=== PATIENT | female | born 1975 | race Caucasian/White ===

== ENCOUNTER 2018-10-03 20:40 | Emergency (ER) | payer SELFPAY ==
[~2018-10-03] VITALS: Ht 162.6 cm; Wt 72.7 kg
[2018-10-03 20:53] VITALS: Ht 162.6 cm; Wt 72.7 kg
[2018-10-03] MEDS ORDERED: TORADOL10 MG PO (22:21)
[2018-10-03 23:03] VITALS: BP 123/71
== END 2018-10-03 23:03 | disposition home or self-care (01) ==
LOC: D.ER 20:40
DX: S66.911A Strain of unspecified muscle, fascia and tendon at wrist and hand level, right hand, initial encounter (principal); X58.XXXA Exposure to other specified factors, initial encounter; Y93.89 Activity, other specified; Y92.019 Unspecified place in single-family (private) house as the place of occurrence of the external cause

== ENCOUNTER 2019-02-17 08:00 | Outpatient (CLI) | payer MEDICAID ==
[2018-10-03 20:53] VITALS: BMI 27.5
[~2019-02-17 08:00] MED LIST: TORADOL10 MG PO
== END 2019-02-17 23:59 | disposition home or self-care (01) ==
LOC: D.MAMMO 08:00
PROVIDERS: ATTEND Family Medicine
DX: Z12.31 Encounter for screening mammogram for malignant neoplasm of breast (principal)

== ENCOUNTER 2019-02-19 19:43 | Emergency (ER) | payer MEDICAID ==
[~2019-02-19] VITALS: Ht 162.6 cm; Wt 68.0 kg
[2019-02-19 19:51] VITALS: Ht 162.6 cm; Wt 68.0 kg
[2019-02-19] MEDS ORDERED: TOPAMAX50 MG PO (21:04)
[2019-02-19] MEDS ORDERED: VISTARIL50 MG PO (21:05)
[2019-02-19] MEDS ORDERED: MEDROL DOSE PACK4 MG PO (21:05)
[2019-02-19 21:46] VITALS: BP 116/79
== END 2019-02-19 21:46 | disposition home or self-care (01) ==
LOC: D.ER 19:43
DX: G43.909 Migraine, unspecified, not intractable, without status migrainosus (principal); T78.40XA Allergy, unspecified, initial encounter; X58.XXXA Exposure to other specified factors, initial encounter

== ENCOUNTER 2019-04-18 10:30 | Outpatient (CLI) | payer MEDICAID ==
[2019-02-19 19:51] VITALS: BMI 27.5
[~2019-04-18 10:30] MED LIST changes: +MEDROL DOSE PACK4 MG PO; +TOPAMAX50 MG PO; +VISTARIL50 MG PO
== END 2019-04-18 11:00 | disposition home or self-care (01) ==
LOC: D.MAMMO 10:30
PROVIDERS: ATTEND Family Medicine
DX: R92.8 Other abnormal and inconclusive findings on diagnostic imaging of breast (principal)

== ENCOUNTER 2019-05-07 15:02 | Emergency (ER) | payer MEDICAID ==
[~2019-05-07] VITALS: Ht 162.6 cm; Wt 77.3 kg
[2019-05-07 15:07] VITALS: Ht 162.6 cm; Wt 77.3 kg
[2019-05-07] MEDS ORDERED: TYLENOL W/CODEI1 TAB PO (16:02)
[2019-05-07] MEDS ORDERED: ALBUTEROL SULF8.5 GM INH (16:02)
[2019-05-07] MEDS ORDERED: ZPAK PO (16:02)
[2019-05-07 16:19] VITALS: BP 125/77
== END 2019-05-07 16:19 | disposition home or self-care (01) ==
LOC: D.ER 15:02
DX: J40 Bronchitis, not specified as acute or chronic (principal); F17.210 Nicotine dependence, cigarettes, uncomplicated

== ENCOUNTER 2019-07-20 12:46 | Emergency (ER) | payer MEDICAID ==
[~2019-07-20] VITALS: Ht 162.6 cm; Wt 73.6 kg
[~2019-07-20 12:46] MED LIST changes: +ALBUTEROL SULF8.5 GM INH; +TYLENOL W/CODEI1 TAB PO; +ZPAK PO
[2019-07-20 12:51] VITALS: BP 127/77; Ht 162.6 cm; Wt 73.6 kg
[2019-07-20] MEDS ORDERED: PROPRANOLOL HCL20 MG PO (12:53)
[2019-07-20] MEDS ORDERED: VALIUM 2 MG TAB2 MG PO (12:54)
[2019-07-20] MEDS ORDERED: ULTRAM50 MG PO (15:12)
== END 2019-07-20 15:46 | disposition home or self-care (01) ==
LOC: D.ER 12:46
DX: S66.211A Strain of extensor muscle, fascia and tendon of right thumb at wrist and hand level, initial encounter (principal); W19.XXXA Unspecified fall, initial encounter; Y93.9 Activity, unspecified; Y92.9 Unspecified place or not applicable; S63.511A Sprain of carpal joint of right wrist, initial encounter

== ENCOUNTER 2019-09-25 05:00 | Inpatient (IN) | payer MEDICAID ==
[2019-09-22 11:05] LABS: BASOPHILS 0.2 % (0-2); EOSINOPHILS 1.5 % (0-7); HEMATOCRIT 39.3 % (36.0-48.0); HEMOGLOBIN 13.2 g/dL (12-16); IMMATURE GRANULOCYTES 0.4 % (0-5); LYMPHOCYTES 37.6 % (15-50); MCH 27.7 pg (26.0-34.0); MCHC 33.6 g/dL (31.0-37.0); MCV 82.4 fL (80.0-100.0); MEAN PLATELET VOLUME 9.9 fL (7.4-10.4); MONOCYTES 6.7 % (2-11); NEUTROPHILS 53.6 % (40-80); PLATELET COUNT 387 10x3/uL (130-400); RBC 4.77 10x6/uL (4.00-5.40); WBC 10.1 10x3/uL (4.8-10.8)
[2019-09-22 11:29] LABS: CALC OSMOLALITY 277 mosm/kg (275-300); CALCIUM 9.5 mg/dL (8.5-10.1); CARBON DIOXIDE 21.6 mmol/L (21.0-32.0); CHLORIDE - SERUM 105 mmol/L (98-107); CREATININE - SERUM 0.8 mg/dL (0.6-1.3); GLUCOSE 92 mg/dL (74-106); POTASSIUM - SERUM 3.6 mmol/L (3.5-5.1); SODIUM 139 mmol/L (136-145); UREA NITROGEN 12 mg/dL (7-18); eGFR NON AFRICAN AMERICAN 84 mL/min (90-120)
[2019-09-22 11:32] LABS: UDS - AMPHET NEGATIVE QUAL (NEGATIVE); UDS - BARB NEGATIVE QUAL (NEGATIVE); UDS - BENZO POSITIVE QUAL (NEGATIVE); UDS - COCAINE NEGATIVE QUAL (NEGATIVE); UDS - OPIATE NEGATIVE QUAL (NEGATIVE); UDS - PCP NEGATIVE QUAL (NEGATIVE); UDS - THC NEGATIVE QUAL (NEGATIVE)
[2019-09-22 12:00] LABS: HCG URINE NEGATIVE (NEGATIVE)
[~2019-09-25] VITALS: Ht 162.6 cm; Wt 88.6 kg
[2019-09-25] VITALS (8 sets, daily range): BP systolic 101–147; BP diastolic 56–77; Ht 162.6 cm; Wt 88.6 kg
[~2019-09-25 05:00] MED LIST changes: +PROPRANOLOL HCL20 MG PO; +ULTRAM50 MG PO; +VALIUM 2 MG TAB2 MG PO
[2019-09-25 06:09] LABS: HCG URINE NEGATIVE (NEGATIVE)
[2019-09-26 04:56] VITALS: BP 101/52
[2019-09-26 06:39] LABS: BASOPHILS 0.1 % (0-2); EOSINOPHILS 0.1 % (0-7); HEMATOCRIT 33.5 % (36.0-48.0); HEMOGLOBIN 11.1 g/dL (12-16); IMMATURE GRANULOCYTES 0.3 % (0-5); MCH 27.5 pg (26.0-34.0); MCHC 33.1 g/dL (31.0-37.0); MCV 83.1 fL (80.0-100.0); MEAN PLATELET VOLUME 10.4 fL (7.4-10.4); MONOCYTES 8.9 % (2-11); NEUTROPHILS 69.6 % (40-80); PLATELET COUNT 363 10x3/uL (130-400); RBC 4.03 10x6/uL (4.00-5.40); RDW 15.4 % (11.5-14.5)
[2019-09-26 07:16] VITALS: BP 123/57
--- NOTE | 2019-09-26 08:27 | OP ---
PATIENT NAME: LINDA GABRIEL MEDICAL RECORD: [id number] :79 LOCATION:[id number] ADMISSION DATE:09/25/19 SURGEON: WILLIAMS PERALTA MD DATE OF OPERATION: 09/25/2019 PREOPERATIVE DIAGNOSES: 1. Dysfunctional uterine bleeding. 2. Pelvic pain. 3. Dysmenorrhea. POSTOPERATIVE DIAGNOSES: 1. Dysfunctional uterine bleeding. 2. Pelvic pain. 3. Dysmenorrhea. 4. Dense pelvic adhesions. PROCEDURE PERFORMED: 1. Diagnostic laparoscopy. 2. Exploratory laparotomy. 3. Lysis of adhesions. 4. Total abdominal hysterectomy. 5. Right salpingectomy. 6. Left salpingo-oophorectomy. SURGEON: Williams Peralta MD VESSEL OPERATOR: Sherman. TROUBLE OPERATOR: Alvin Hall. ANESTHESIOLOGIST: Dr. Mancilla. ANESTHETIC: General. FINDINGS: Uterus is densely adhesed across the fundus to the anterior abdominal wall. There were dense adhesions extending from the lower segment all the way to the fundus anteriorly. Right ovary is unremarkable as well as the right tube. Left tube and ovary are unremarkable with the exception of a 2.5 to 3 cm cyst on the left side. What was visualized at the abdominal anatomy is unremarkable. SPECIMENS REMOVED: 1. Bilateral tubes. 2. Left ovary. 3. Uterus with cervix. SPECIMEN DISPOSITION: All specimens to pathology. ESTIMATED BLOOD LOSS: Less than or equal to 175 cc. FLUIDS: 2 liters of lactated Ringer's. URINE OUTPUT: 100 cc of clear urine. COMPLICATIONS: None. OPERATIVE REPORT [id number] LINDA GABRIEL DRAINS: Traylor to gravity. INDICATIONS: The patient is a 43-year-old female with a history of heavy irregular periods. The patient has her cycles marked with intense pain as well as having pain with intimacy. The patient is consented for diagnostic laparoscopy and possible total laparoscopic hysterectomy with left salpingo-oophorectomy, right salpingectomy and any indicated procedure. DESCRIPTION OF PROCEDURE: After informed consent was assured, the patient was taken to the operating room where anesthetic was obtained. The patient is now prepped and draped in the usual sterile fashion. An incision was made in the umbilicus to accommodate a 5-mm trocar, which was inserted without difficulty. After pneumoperitoneum was developed and the patient in Trendelenburg position, pelvis was visualized. The uterus is noted to be adhesed densely across the anterior surface of the fundus. The adhesions extended down to the lower segment. At this point, it was decided to move for an open procedure. The pneumoperitoneum was released and the trocars were removed and an incision was made over the old Pfannenstiel scar. This incision was carried down to the underlying layer of the fascia, which was opened in the midline and extended laterally. Rectus bellies were dissected free superiorly and inferiorly, then in the midline. Dense adhesions of the uterus were immediately encountered upon entering the abdomen. Dissection of the peritoneum was carried out lateral to these adhesions. The adhesions now taken down with both Bovie cautery and sharply. Once the fundus has been mobilized, further dissection continues down the anterior surface. Once the uterus has been mobilized, clamps were placed across the cornual region of the uterus and it is retracted anteriorly. The right round ligament is identified and stick tied. A window was created in the posterior leaf of the broad ligament after entering the round ligament. Through this, a clamp was inserted. A clamp was now placed on the proximal side of this opening and the tube and ovary mobilized. Once this has been performed, the stick ties used to obtain hemostasis on the lateral pedicle. Once this was performed, the right tube was elevated and Sia clamp was placed between the ovary and tube along the mesosalpinx. The tube was freed and a Sia stitch was applied here for hemostasis. Attention was directed back to the broad ligament where the anterior leaf was opened and the bladder flap now developed to the midline. Adhesions are taken down of the bladder to the cervix sharply at this time. Further dissection continued along the vascular bundle of the right side. Using a Sia-[place] clamp, the vascular bundle was clamped, cut and tied at the level of the internal os. Attention was now directed to the left side. In a similar fashion, the left round ligament was now identified, elevated, and stick tied. The round ligament was entered and dissection was carried posteriorly along the uterine ovarian ligament. Anteriorly, the dissection was carried down and with both sharp dissection and Bovie cautery, the bladder was mobilized off the cervix and vagina. Attention was now directed back to that left adnexa, which is retracted medially. A clamp was now placed on the infundibulopelvic ligament coming through a window created in the posterior leaf of the broad ligament. A clamp was placed proximal to this and lateral to the ovary. The pedicle was now developed and a tie on a pass with a flash and then a [id number]-hyk-vdk stitch applied to the left infundibulopelvic ligament for hemostasis. Dissection now continues around the vascular bundle on the left side and once it is freed, it is clamped, cut and tied. A single bite with a Sia-[place] clamp on the left side followed by straight clamp on the right side freed the uterus from its remaining attachments to the cardinal ligament. The uterine manipulator, which was placed at the OPERATIVE REPORT [id number] LINDA GABRIEL of this case was placed on tension and the cup was easily identified. Using Bovie cautery, the vagina was entered anteriorly and the dissection carried around posteriorly. This was performed in a counterclockwise fashion from the 12 o'clock position. After the dissection reaches the 6th, the dissection continued from the 12 to the 3 o'clock position and the remaining portion of the vaginal cuff removed with Jolene scissors. The cuff was grasped with Larry clamps. The uterosacral ligament was secured to the left cornual of the vaginal cuff. Interrupted stitches were placed across the middle of the cuff and on the right side, a stitch was used to stick tie the uterosacral ligaments and place it into the vaginal cuff close. All these ligatures are cut after irrigating the pelvis and found to be hemostatic. The sponges that were used placed in the abdomen to keep the bowel free of the operative field are now removed and our initial count is correct. The pelvis again is inspected and some oozing was noted from the bladder dissection. Surgicel powder was placed in the deep pelvis to obtain hemostasis. The sponge, lap, needle counts were correct times 2. The peritoneum and rectus bellies were reapproximated with a loose stitch. The fascia was closed with a looped running PDS. The subcutaneous tissues were irrigated, bleeding vessels cauterized, and the skin was closed with a subcuticular stitch. Sterile dressing was applied. Sponge, lap, and needle count has been correct times 2 on this procedure. The patient was awakened and went to the recovery room in stable condition. TRANSINT:[id number] Voice Confirmation ID: [id number] DOCUMENT ID: [id number] WILLIAMS PERALTA MD at 0827 CC: [id number] DICTATION DATE: 09/25/19 09 MAID CLEANING COOKING: 09/25/19 1140 ADM IN [place] [id number] [place] [id number]
[2019-09-26 11:39] VITALS: BP 104/62
[2019-09-26] MEDS ORDERED: PERCOCET 7.5/321 TAB PO (12:56)
[2019-09-26] MEDS ORDERED: IBUPROFEN800 MG PO (12:56)
[2019-09-26] MEDS ORDERED: NEURONTIN 300300 MG PO (12:57)
--- NOTE | 2019-09-27 11:30 | MORECARE ---
CASE MANAGEMENT DISCHARGE SUMMARY PATIENT: LINDA GABRIEL UNIT: [id number] ADM DATE: 09/25/19 AGE: 43 : [birth year] SEX: F ROOM/BED: D.1273 AUTHOR: CAL PEREZ PHYSICIAN: REFERRING PHYSICIAN: TRAE PERALTA MD DATE OF SERVICE: 09/27/19 Discharge Plan Patient Name: LINDA GABRIEL Facility: [facility]:[place] : 1975 Planned Disposition: Home Anticipated Discharge Date: 09/26/19 Discharge Date: 09/26/2019 Expected LOS: 1 Initial Reviewer: [email or web address] Initial Review Date: 09/26/2019 Generated: 09/27/19 12:29 pm Patient Name: LINDA GABRIEL Page [id number] at 1130 All edits/amendments must be made on the electronic document DICTATION DATE: 09/27/19 1129 DIRECTOR OF SLOT OPERATIONS: DM 09/27/19 1129 RPT#: [id number] DC DATE:09/26/19 STATUS: DIS IN [facility] [address] [place] [address] END OF REPORT
== END 2019-09-26 17:30 | disposition home or self-care (01) | DRG 743 ==
LOC: D.OPS 05:00 → D.PAN 07:00 → D.OPS 09:00 → D.PAN 09:00 → D.LD 09:51 → D.OPS 09:52 → D.PAN 10:05 → D.LD 09-26 17:30
PROVIDERS: Anesthesiology; ADMIT Obstetrics & Gynecology; ATTEND Obstetrics & Gynecology
PROC: 0UT90ZZ Resection of Uterus, Open Approach (ICD-10-PCS; principal; 2019-09-25 07:00)
PROC: 0UB70ZZ Excision of Bilateral Fallopian Tubes, Open Approach (ICD-10-PCS; 2019-09-25 07:00)
PROC: 0UT10ZZ Resection of Left Ovary, Open Approach (ICD-10-PCS; 2019-09-25 07:00)
DX: N93.8 Other specified abnormal uterine and vaginal bleeding (principal); N73.6 Female pelvic peritoneal adhesions (postinfective); N83.202 Unspecified ovarian cyst, left side

== ENCOUNTER 2020-11-06 09:12 | Emergency (ER) | payer BC ==
[~2020-11-06] VITALS: Ht 162.6 cm; Wt 84.1 kg
[~2020-11-06 09:12] MED LIST changes: +IBUPROFEN800 MG PO; +NEURONTIN 300300 MG PO; +PERCOCET 7.5/321 TAB PO
[2020-11-06 09:15] VITALS: BP 131/74; Ht 162.6 cm; Wt 84.1 kg
[2020-11-06] MEDS ORDERED: FEXOFENADINE HC60 MG PO (09:17)
[2020-11-06 10:02] LABS: CALC OSMOLALITY 272 mosm/kg (275-300); CHLORIDE - SERUM 104 mmol/L (98-107); CREATININE - SERUM 0.9 mg/dL (0.6-1.3); GLUCOSE 127 mg/dL (74-106); POTASSIUM - SERUM 3.5 mmol/L (3.5-5.1); SODIUM 136 mmol/L (136-145); UREA NITROGEN 11 mg/dL (7-18); eGFR NON AFRICAN AMERICAN 72 mL/min (90-120)
[2020-11-06 10:12] LABS: ALBUMIN 3.4 g/dL (3.4-5.0); ALKALINE PHOSPHATASE 69 U/L (30-120); ALT (SGPT) 17 U/L (10-68); AMYLASE - SERUM 38 U/L (25-115); BILIRUBIN - TOTAL 0.27 mg/dL (0.2-1.3); LIPASE 80 U/L (73-393)
[2020-11-06 10:13] LABS: TROPONIN-I < 0.017 ng/mL (0.000-0.060)
[2020-11-06 10:15] LABS: BASOPHILS 0.2 % (0-2); EOSINOPHILS 1.3 % (0-7); HEMATOCRIT 38.8 % (36.0-48.0); HEMOGLOBIN 13.2 g/dL (12-16); IMMATURE GRANULOCYTES 0.3 % (0-5); LYMPHOCYTES 27.1 % (15-50); MCH 29.7 pg (26.0-34.0); MCV 87.2 fL (80.0-100.0); MEAN PLATELET VOLUME 10.6 fL (7.4-10.4); MONOCYTES 4.5 % (2-11); NEUTROPHIL ABS# 7.89 10x3/uL (1.56-6.13); NEUTROPHILS 66.6 % (40-80); PLATELET COUNT 318 10x3/uL (130-400); RBC 4.45 10x6/uL (4.00-5.40); RDW 12.8 % (11.5-14.5); WBC 11.8 10x3/uL (4.8-10.8)
[2020-11-06 10:28] LABS: HCG URINE NEGATIVE (NEGATIVE)
[2020-11-06 10:35] LABS: BILIRUBIN NEGATIVE (NEGATIVE); KETONE NEGATIVE (NEGATIVE); NITRITE POSITIVE (NEGATIVE); UROBILINOGEN NORMAL mg/dL (< 2)
[2020-11-06 10:38] LABS: BACTERIA MANY HPF (NONE SEEN); WHITE CELLS - URINE 25-50 HPF (0-4)
[2020-11-06] MEDS ORDERED: CEPHALEXIN500 M1 PO (11:49)
[2020-11-06] MEDS ORDERED: CYCLOBENZAPRINE10 MG PO (11:49)
[2020-11-06] MEDS ORDERED: IBUPROFEN800 MG PO (11:49)
[2020-11-06] MEDS ORDERED: MACROBID100 MG PO (11:49)
[2020-11-06] MEDS ORDERED: ACETAMINOPHEN500 M1 PO (11:49)
== END 2020-11-06 12:08 | disposition home or self-care (01) ==
LOC: D.ER 09:12
PROVIDERS: Family Medicine
DX: R10.11 Right upper quadrant pain (principal); N39.0 Urinary tract infection, site not specified; K21.9 Gastro-esophageal reflux disease without esophagitis

== ENCOUNTER 2020-12-22 11:41 | Emergency (ER) | payer BC ==
[~2020-12-22] VITALS: Ht 162.6 cm; Wt 90.9 kg
[~2020-12-22 11:41] MED LIST changes: +ACETAMINOPHEN500 M1 PO; +CEPHALEXIN500 M1 PO; +CYCLOBENZAPRINE10 MG PO; +FEXOFENADINE HC60 MG PO; +MACROBID100 MG PO
[2020-12-22 11:54] VITALS: BP 140/89; Ht 162.6 cm; Wt 90.9 kg
[2020-12-22] MEDS ORDERED: NEURONTIN 300300 MG PO (14:39)
== END 2020-12-22 15:42 | disposition home or self-care (01) ==
LOC: D.ER 11:41
DX: S44.01XA Injury of ulnar nerve at upper arm level, right arm, initial encounter (principal); R53.1 Weakness; W22.8XXA Striking against or struck by other objects, initial encounter; Y93.9 Activity, unspecified; Y92.9 Unspecified place or not applicable